=== PATIENT | female | born 1940 | race Caucasian/White ===

== ENCOUNTER 2016-02-21 13:02 | Outpatient (CLI) | payer MEDICARE, OTHER | END 2016-02-21 13:03 | disposition home or self-care (01) | DX: M85.859 Other specified disorders of bone density and structure, unspecified thigh (principal); Z78.0 Asymptomatic menopausal state ==

== ENCOUNTER 2016-03-03 12:13 | Outpatient (CLI) | payer MEDICARE, OTHER ==
--- NOTE | 2016-03-03 13:07 | XRAY Report ---
THREE-VIEW LEFT SHOULDER: 03/03/2016 CLINICAL INDICATION: Pain. FINDINGS: AP, oblique, scapular Y views of the left shoulder demonstrate no evidence of acute fractu re or dislocation. Degenerative changes are seen in the acromioclavicular joint. No radiopaque fore ign body is seen in the soft tissues. IMPRESSION: DEGENERATIVE CHANGES IN THE AC JOINT. NO EVIDENCE OF FRACTURE OR DISLOCATION. JOB #: [id number] EXT JOB #:[id number]
== END 2016-03-03 12:14 | disposition home or self-care (01) ==
LOC: DI 12:13
PROVIDERS: ATTEND Family Medicine
DX: M19.012 Primary osteoarthritis, left shoulder (principal)

== ENCOUNTER 2017-01-09 13:32 | Outpatient (CLI) | payer MEDICARE, OTHER | END 2017-01-09 13:33 | disposition home or self-care (01) | LOC: DI 13:32 | PROVIDERS: ATTEND Family Medicine | DX: R53.81 Other malaise (principal); I51.7 Cardiomegaly | CPT/HCPCS: 93306 ==

== ENCOUNTER 2017-01-20 10:56 | Outpatient (CLI) | payer MEDICARE, OTHER ==
--- NOTE | 2017-01-26 12:03 | Mammography Report ---
EXAM: Digital screening mammogram 01/20/2017. COMPARISON: 01/2016, 01/2015, 01/2014, 12/2012, 06/2011, 05/2010, 05/2009. TECHNIQUE: Routine CC and MLO projections were obtained of the breasts. FINDINGS: The breasts demonstrate scattered fibroglandular densities bilaterally. Coarse and punctate, typically benign calcifications are present. No suspicious masses, clustered microcalcifications, or regions of architectural distortion are identified. IMPRESSION: Benign findings. RECOMMENDATIONS: Routine annual screening unless otherwise clinically indicated. BIRADS category 2 - Benign findings. STANDARD QUALIFYING STATEMENTS 1. This examination was reviewed with the aid of Computed Aided Detection (CAD). 2. A negative x-ray report should not delay biopsy if a dominant or clinically suspicious mass is present. More than 5% of cancers are not identified by x-ray. 3. Dense breasts may obscure an underlying neoplasm. TD: 01/21/2017 14:56 SHERRILL
== END 2017-01-20 10:57 | disposition home or self-care (01) ==
LOC: DI 10:56
PROVIDERS: ATTEND Family Medicine
DX: Z12.31 Encounter for screening mammogram for malignant neoplasm of breast (principal)
CPT/HCPCS: 77067

== ENCOUNTER 2017-12-28 08:19 | Emergency (ER) | payer MEDICARE, OTHER ==
--- NOTE | 2017-12-28 09:02 | ED Physician Documentation ---
PD HPI HEENT - Stated complaint Stated Complaint: PANIC ATTACK - Chief complaint Chief Complaint: Heent - History obtained from History obtained from: Patient - History of Present Illness Timing - onset: How many weeks ago (She has had nasal congestion with sinus pressure and a throat irritation with cough for several weeks to a month or so. She has been on Mucinex without any improvement. She had been using some [id number] cough medicine as well. She states she has had some trouble sleeping with anxiety at nights and was prescribed Xanax for that. She has had can do consistent cough and throat irritation and is here for another evaluation.) Timing - duration: Weeks Timing - details: Gradual onset, Still present, Waxing and waning Location: Sinuses, Throat Worsens: Swalllowing Associated symptoms: Congestion, Cough (more throat irritation and denies it feeling from deep in chest). No: Fever Similar symptoms before: Has not had sx before Recently seen: Clinic (Dr. Greene and Rx Mucinex.) Review of Systems Constitutional: denies: Fever, Chills Nose: reports: Congestion, Sinus pressure / pain. denies: Rhinorrhea / runny nose Throat: reports: Sore throat Cardiac: denies: Chest pain / pressure Respiratory: reports: Cough. denies: Dyspnea, Wheezing GI: denies: Abdominal Pain, Nausea, Vomiting, Diarrhea Skin: denies: Rash, Lesions Neurologic: denies: Altered mental status, Headache Psychiatric: reports: Anxiety, Insomnia PD PAST MEDICAL HISTORY - Past Medical History Cardiovascular: Hypertension, Murmur Respiratory: None Endocrine/Autoimmune: None GI: None : Kidney stones HEENT: Chronic sinusitis Psych: None Musculoskeletal: Osteoporosis Derm: None - Past Surgical History Past Surgical History: Yes General: Appendectomy HEENT: Cataracts - Present Medications Home Medications: Ambulatory Orders Medication Instructions Recorded Confirmed Aspirin [Aspir 81] 81 mg PO DAILY 10/05/12 10/05/12 Calcium [Calcio [place]] 500 mg PO BID 10/05/12 10/05/12 Flaxseed Oil [Flax Seed Oil] 1,000 mg PO DAILY 10/05/12 10/05/12 Hydrochlorothiazide 25 mg PO DAILY 10/05/12 10/05/12 Docusate Calcium 240 mg PO DAILY #30 capsule 08/26/15 Alprazolam [Xanax] 0.25 mg PO 12/28/17 Benzonatate [Tessalon Perle] 100 - 200 mg PO TID PRN #30 capsule 12/28/17 Cetirizine [ZyrTEC] 10 mg PO DAILY #15 tablet 12/28/17 Dexamethasone [Decadron] 4 mg PO DAILY #5 tablet 12/28/17 Ipratropium [place] [Atrovent Hfa] 12.9 gm IH 12/28/17 Levocetirizine Dihydrochloride 5 mg PO 12/28/17 [Xyzal] Montelukast [Singulair] 10 mg PO DAILY 12/28/17 12/28/17 - Allergies Allergies/Adverse Reactions: Allergies Allergy/AdvReac Type Severity Reaction Status Date / Time propoxyphene napsylate * Allergy Intermediate Hallucinati Verified 12/28/17 08:30 [From Ofe] ons - Social History Does the pt smoke?: No Smoking Status: Never smoker Does the pt drink ETOH?: No Does the pt have substance abuse?: No - POLST Patient has POLST: No PD ED PE NORMAL - Vitals Vital signs reviewed: Yes - General General: Alert and oriented X 3, No acute distress, Well developed/nourished - HEENT HEENT: Pharynx benign - Neck Neck: Supple, no meningeal sign, No adenopathy - Cardiac Cardiac: RRR, No murmur - Respiratory Respiratory: Clear bilaterally - Abdomen Abdomen: Soft, Non tender - Derm Derm: Normal color, Warm and dry - Extremities Extremities: No tenderness to palpate, Normal ROM s pain - Neuro Neuro: Alert and oriented X 3, sound engineer audio control 2-12 intact, No motor deficit, No sensory deficit, Normal speech Eye Opening: Spontaneous Motor: Obeys Commands Verbal: Oriented GCS Score: 15 - Psych Psych: Normal mood Results - Vitals Vitals: Vital Signs - 24 hr 12/28/17 12/28/17 08:27 10:03 Temperature 36.9 C Heart Rate 72 65 Respiratory 18 14 Rate Blood Pressure 139/107 H 161/81 H O2 Saturation 98 96 Oxygen O2 Source Room air - Labs Labs: Laboratory Tests 12/28/17 12/28/17 09:53 09:53 Sodium 130 L Potassium 3.4 L Chloride 93 L Carbon Dioxide 30 Anion Gap 7.0 BUN 6 Creatinine 0.5 Estimated GFR (MDRD) 120 Glucose 118 H Calcium 8.9 Phosphorus 3.8 Magnesium 2.1 Total Bilirubin 0.9 AST 32 ALT 25 Alkaline Phosphatase 58 Total Protein 7.5 Albumin 4.4 Globulin 3.1 Albumin/Globulin Ratio 1.4 Lipase 24 TSH 1.05 PD MEDICAL DECISION MAKING - ED course Complexity details: considered differential (Having persistent sore throat and a bit of a tickle cough as well as some pressure in the face sounds like sinus inflammation and can consider infection.), d/w patient Departure - Departure Disposition: 01 Home, Self Care Clinical Impression: Throat irritation Sinusitis Qualifiers: Sinusitis location: unspecified location Chronicity: unspecified Qualified Code(s): J32.9 - Chronic sinusitis, unspecified Condition: Stable Record reviewed to determine appropriate education?: Yes Follow-Up: Luis Triplett MD [Primary Care Provider] - Prescriptions: Benzonatate [Tessalon Perle] 100 - 200 mg PO TID PRN #30 capsule PRN Reason: Cough Cetirizine [ZyrTEC] 10 mg PO DAILY #15 tablet Dexamethasone [Decadron] 4 mg PO DAILY #5 tablet Comments: Drink lots of fluids. Use Decadron for swelling of the sinuses and throat. Tessalon if needed for the throat irritation. Cetirizine antihistamine daily for the next week or so. Recheck if not improved over the next few days. Discharge Date/Time: 12/28/17 11:27
[2017-12-28] MEDS ORDERED: DEXAMETHASONE 10 MG/ML VIAL PO STA (09:28)
[2017-12-28] MEDS ORDERED: BENZONATATE 100 MG CAPSULE PO STA (09:28)
[2017-12-28] MEDS ORDERED: LIDOCAINE VISCOUS 2% 15 ML UDC MM STA (09:29)
[2017-12-28 10:04] VITALS: BP 161/81
[2017-12-28 10:16] LABS: ALBUMIN 4.4 g/dL (3.2-5.5); ALBUMIN/GLOBULIN RATIO 1.4 (1.0-2.2); BILIRUBIN,TOTAL 0.9 mg/dL (0.2-1.0); CALCIUM 8.9 mg/dL (8.5-10.3); CREATININE 0.5 mg/dL (0.4-1.0); MAGNESIUM 2.1 mg/dL (1.7-2.8); PHOSPHORUS 3.8 mg/dL (2.5-4.6); TOTAL PROTEIN 7.5 g/dL (6.7-8.2)
== END 2017-12-28 11:27 | disposition home or self-care (01) ==
LOC: ED 08:19
DX: J02.9 Acute pharyngitis, unspecified (principal); J32.9 Chronic sinusitis, unspecified; I10 Essential (primary) hypertension; R01.1 Cardiac murmur, unspecified
CPT/HCPCS: 36415; 80053; 83690; 83735; 84100; 84443; 99283; A9270

== ENCOUNTER 2018-03-01 07:46 | Outpatient (CLI) | payer MEDICARE, OTHER ==
--- NOTE | 2018-03-02 09:15 | Mammography Report ---
Reason: ANNUAL MAMMOGRAM Procedure Date: 03/01/2018 Accession Number: [id number] / [id number] Procedure: CLIVE - Screening Mammo w/Anthony CPT Code: FULL RESULT: EXAM: Screening Mammo w/Anthony DATE: 03/01/2018 8:50 AM CLINICAL HISTORY: Screening encounter. No reported risk factors. TECHNIQUE: Bilateral CC and MLO views were obtained. COMPARISON: 01/20/2017 through 01/12/2014. FINDINGS: The breasts demonstrate diffuse fatty replacement bilaterally. There are coarse typically benign calcifications. No suspicious masses, clustered microcalcifications, or regions of architectural distortion are identified. IMPRESSION: Benign findings RECOMMENDATION: Routine annual screening unless otherwise clinically indicated. BIRADS CATEGORY 2: Benign findings STANDARD QUALIFYING STATEMENTS: 1. This examination was not reviewed with the aid of Computer-Aided Detection (CAD). 2. A negative or benign imaging report should not preclude biopsy if clinically suspicious findings are present. 3. Dense breasts may obscure an underlying neoplasm. 4. This examination was reviewed with the aid of 3D breast imaging (tomosynthesis).
== END 2018-03-01 07:47 | disposition home or self-care (01) ==
LOC: DI 07:46
PROVIDERS: ATTEND Family Medicine
DX: Z12.31 Encounter for screening mammogram for malignant neoplasm of breast (principal)
CPT/HCPCS: 77063; 77067

== ENCOUNTER 2018-07-02 11:22 | Outpatient (CLI) | payer MEDICARE, OTHER ==
--- NOTE | 2018-07-02 12:12 | XRAY Report ---
Reason: ACUTE BRONCHITIS, UNSPECIFIED Procedure Date: 07/02/2018 Accession Number: [id number] / [id number] Procedure: XR - Chest 2 View X-Ray CPT Code: 55112 FULL RESULT: EXAM: CHEST RADIOGRAPHY EXAM DATE: 07/02/2018 11:40 AM. CLINICAL HISTORY: Acute bronchitis, unspecified. COMPARISON: XR CHEST PA AND LAT 07/06/2007 3:19 PM. TECHNIQUE: 2 views. FINDINGS: Lungs/Pleura: No focal opacities evident. No pleural effusion. No pneumothorax. Lungs appear hyperinflated. Mediastinum: Heart and mediastinal contours are likely stable accounting for differences in technique. Other: None. IMPRESSION: Hyperinflated lungs without acute airspace disease detected. RADIA
== END 2018-07-02 11:23 | disposition home or self-care (01) ==
LOC: DI 11:22
PROVIDERS: ATTEND Internal Medicine
DX: J20.9 Acute bronchitis, unspecified (principal)
CPT/HCPCS: 71046

== ENCOUNTER 2018-07-12 09:22 | Outpatient (CLI) | payer MEDICARE, OTHER ==
--- NOTE | 2018-07-12 11:50 | XRAY Report ---
Reason: HOARSENESS,OTHER DYSPHAGIA,EDEMA OF PHARYNX Procedure Date: 07/12/2018 Accession Number: [id number] / [id number] Procedure: FL - Modified Barium Swallow W/SP CPT Code: FULL RESULT: EXAM: MODIFIED BARIUM SWALLOW EXAM DATE: 07/12/2018 09:58 AM. CLINICAL HISTORY: Hoarseness, other dysphagia, edema of pharynx. COMPARISON: None. TECHNIQUE: Under the direction of speech pathology, patient swallowed various consistencies of barium under lateral fluoroscopic observation of the neck. Fluoroscopy Time: 45 seconds. Number of Images: 50. FINDINGS: Swallowing Mechanism: Normal oral phase and swallowing reflex. Airway Protection: Normal epiglottic motion. No episodes of tracheal penetration or aspiration with all consistencies of barium. Pharynx: Normal. No significant vallecular or piriform sinus contrast pooling. Other: None. IMPRESSION: Normal modified barium swallow. No aspiration identified. RADIA
== END 2018-07-12 09:23 | disposition home or self-care (01) ==
LOC: DI 09:22
PROVIDERS: ATTEND Otolaryngology
DX: R13.19 Other dysphagia (principal); R49.0 Dysphonia; J39.2 Other diseases of pharynx
CPT/HCPCS: 74230

== ENCOUNTER 2018-08-22 10:05 | Emergency (ER) | payer MEDICARE, OTHER ==
[2018-08-22 10:52] LABS: BASOPHILS % (AUTO) 0.5 %; EOSINOPHILS % (AUTO) 0.4 %; HGB - HEMOGLOBIN 10.3 g/dL (12.0-16.0); LYMPHOCYTES # (AUTO) 0.8 10^3/uL (1.5-3.5); LYMPHOCYTES % (AUTO) 9.8 %; MEAN CORPUSCULAR HEMOGLOBIN 28.9 pg (27.0-31.0); MEAN CORPUSCULAR HGB CONC 32.1 g/dL (32.0-36.0); MEAN CORPUSCULAR VOLUME 89.9 fL (81.0-99.0); MEAN PLATELET VOLUME 8.3 fL (7.9-10.8); MONOCYTES # (AUTO) 0.6 10^3/uL (0.0-1.0); MONOCYTES % (AUTO) 7.4 %; NEUTROPHILS # (AUTO) 6.9 10^3/uL (1.5-6.6); NEUTROPHILS % (AUTO) 81.5 %; PLT - PLATELET COUNT 355 10^3/uL (130-450); RED BLOOD COUNT 3.57 10^6/uL (4.20-5.40); RED CELL DISTRIBUTION WIDTH 14.4 % (12.0-15.0); WHITE BLOOD COUNT 8.4 x10^3/uL (4.8-10.8)
[2018-08-22 11:12] LABS: ALBUMIN 3.3 g/dL (3.2-5.5); ALBUMIN/GLOBULIN RATIO 1.1 (1.0-2.2); BILIRUBIN,TOTAL 0.7 mg/dL (0.2-1.0); CALCIUM 8.6 mg/dL (8.5-10.3); CREATININE 0.5 mg/dL (0.4-1.0); TOTAL PROTEIN 6.2 g/dL (6.7-8.2)
--- NOTE | 2018-08-22 12:17 | ED Physician Documentation ---
PD HPI ABD PAIN - Stated complaint Stated Complaint: CONSTIPATED - Chief complaint Chief Complaint: Abd Pain - History obtained from History obtained from: Patient - History of Present Illness Timing - onset: Other (2 weeks constipation. Has H/O chronic recurrent constipation despite taking stool softeners.) Timing - details: Still present (She is been trying rectal massage externally without relief. She has not trialed in any oral laxatives per se. She is living alone and seems very lonely. Her about a year ago and she has lost weight since then.) Review of Systems Constitutional: denies: Fever, Chills GI: denies: Abdominal Pain, Nausea, Vomiting, Diarrhea, Hematemesis, Bloody / black stool : denies: Dysuria, Frequency PD PAST MEDICAL HISTORY - Past Medical History Cardiovascular: Hypertension, Murmur Respiratory: None Neuro: None Endocrine/Autoimmune: None GI: Chronic constipation, Other : Kidney stones HEENT: Chronic sinusitis Psych: None Musculoskeletal: Osteoporosis Derm: None Other Past Medical History: difficulty swallowing. - Past Surgical History Past Surgical History: Yes General: Appendectomy HEENT: Cataracts - Present Medications Home Medications: Ambulatory Orders Medication Instructions Recorded Confirmed Aspirin [Aspir 81] 81 mg PO DAILY 10/05/12 10/05/12 Calcium [Calcio [place]] 500 mg PO BID 10/05/12 10/05/12 Flaxseed Oil [Flax Seed Oil] 1,000 mg PO DAILY 10/05/12 10/05/12 Hydrochlorothiazide 25 mg PO DAILY 10/05/12 10/05/12 Docusate Calcium 240 mg PO DAILY #30 capsule 08/26/15 Alprazolam [Xanax] 0.25 mg PO 12/28/17 Benzonatate [Tessalon Perle] 100 - 200 mg PO TID PRN #30 capsule 12/28/17 Cetirizine [ZyrTEC] 10 mg PO DAILY #15 tablet 12/28/17 Ipratropium [place] [Atrovent Hfa] 12.9 gm IH 12/28/17 Levocetirizine Dihydrochloride 5 mg PO 12/28/17 [Xyzal] Montelukast [Singulair] 10 mg PO DAILY 12/28/17 12/28/17 dexAMETHasone [Decadron] 4 mg PO DAILY #5 tablet 12/28/17 Lactulose [Generlac] 10 gm PO QID PRN #150 ml 08/22/18 - Allergies Allergies/Adverse Reactions: Allergies Allergy/AdvReac Type Severity Reaction Status Date / Time propoxyphene napsylate * Allergy Intermediate Hallucinati Verified 12/28/17 08:30 [From Ofe] ons - Social History Does the pt smoke?: No Smoking Status: Never smoker Does the pt drink ETOH?: No Does the pt have substance abuse?: No - Immunizations Immunizations are current?: Yes - POLST Patient has POLST: No PD ED PE NORMAL - Vitals Vital signs reviewed: Yes - General General: Alert and oriented X 3, No acute distress - Cardiac Cardiac: RRR, No murmur - Respiratory Respiratory: No respiratory distress, Clear bilaterally - Abdomen Abdomen: Normal bowel sounds, Soft, Non tender - Rectal Rectal: Other (Minimal's brown stool in the vault, external hemorrhoids. Guaiac negative. No reachable fecal impaction.) - Back Back: No CVA TTP, No spinal TTP - Derm Derm: Normal color, Warm and dry - Extremities Extremities: Other (trace pitting pedal edema) - Neuro Neuro: Alert and oriented X 3, Normal speech Results - Vitals Vitals: Vital Signs - 24 hr 08/22/18 08/22/18 10:13 10:56 Temperature 36.1 C L Heart Rate 58 L 62 Respiratory 18 10 L Rate Blood Pressure 108/71 128/70 O2 Saturation 98 99 Oxygen O2 Source Room air - Labs Labs: Laboratory Tests 08/22/18 08/22/18 08/22/18 10:47 10:47 10:47 WBC 8.4 RBC 3.57 L Hgb 10.3 L Hct 32.1 L MCV 89.9 MCH 28.9 MCHC 32.1 RDW 14.4 Plt Count 355 MPV 8.3 Neut # (Auto) 6.9 H Lymph # (Auto) 0.8 L [place] # (Auto) 0.6 Eos # (Auto) 0.0 Baso # (Auto) 0.0 Absolute Nucleated RBC 0.00 Nucleated RBC % 0.0 Sodium 124 L Potassium 2.9 L Chloride 87 L Carbon Dioxide 26 Anion Gap 11.0 BUN 9 Creatinine 0.5 Estimated GFR (MDRD) 120 Glucose 114 H Calcium 8.6 Total Bilirubin 0.7 AST 21 ALT 14 Alkaline Phosphatase 54 Total Protein 6.2 L Albumin 3.3 Globulin 2.9 Albumin/Globulin Ratio 1.1 Lipase 25 TSH 2.71 Thyroxine (T4) 8.15 Free T3 pg/mL 08/22/18 10:47 WBC RBC Hgb Hct MCV MCH MCHC RDW Plt Count MPV Neut # (Auto) Lymph # (Auto) [place] # (Auto) Eos # (Auto) Baso # (Auto) Absolute Nucleated RBC Nucleated RBC % Sodium Potassium Chloride Carbon Dioxide Anion Gap BUN Creatinine Estimated GFR (MDRD) Glucose Calcium Total Bilirubin AST ALT Alkaline Phosphatase Total Protein Albumin Globulin Albumin/Globulin Ratio Lipase TSH Thyroxine (T4) Free T3 pg/mL 2.69 PD MEDICAL DECISION MAKING - ED course ED course: 78-year-old woman with constipation, no fecal impaction within fingers reach. Noted that since the last CBC which was 5 years ago she has become modestly ane sierra, normocytic. She is also fairly hyponatremic and hypokalemic. Advised to stop hydrochlorothiazide. After the administration of magnesium citrate, Dulcolax She had a excellent and large bowel movement. Departure - Departure Disposition: 01 Home, Self Care Clinical Impression: Constipation Qualifiers: Constipation type: unspecified constipation type Qualified Code(s): K59.00 - Constipation, unspecified Condition: Good Record reviewed to determine appropriate education?: Yes Health Concerns: constipation Plan of Treatment: laxatives Care Goals: pooping Assessment: as above Instructions: ED Constipation Prescriptions: Lactulose [Generlac] 10 gm PO QID PRN #150 ml PRN Reason: Constipation Comments: Call your doctor to arrange a follow-up appointment, make the next available appointment. In the interim, return anytime if worse or if new symptoms develop. Pending that appointment, stop your hydrochlorothiazide for low sodium (124) and potassium (2.9) levels.
[2018-08-22] MEDS ORDERED: POTASSIUM CHLORIDE 20 MEQ TABLET PO STA (12:23)
[2018-08-22] MEDS ORDERED: BISACODYL 5 MG TABLET PO STA (12:34)
[2018-08-22] MEDS ORDERED: MAGNESIUM CITRATE 296 ML BOTTLE PO STA (12:34)
[2018-08-22 13:18] LABS: T4 (THYROXINE) 8.15 ug/dL (6.09-12.23)
[2018-08-22 13:22] LABS: THYROID STIMULATING HORMONE 2.71 uIU/mL (0.34-5.60)
[2018-08-22 13:59] VITALS: BP 112/64
== END 2018-08-22 13:59 | disposition home or self-care (01) ==
LOC: ED 10:05
DX: K59.00 Constipation, unspecified (principal); K64.4 Residual hemorrhoidal skin tags; D64.9 Anemia, unspecified; E87.1 Hypo-osmolality and hyponatremia; E87.6 Hypokalemia; I10 Essential (primary) hypertension; Z79.82 Long term (current) use of aspirin
CPT/HCPCS: 36415; 83690; 84436; 84481; 99283; 99284; A9270; 80053; 81001; 81003; 84443; 85025; 87086

== ENCOUNTER 2018-10-06 08:19 | Day surgery (SDC) | payer MEDICARE, OTHER ==
[2018-10-06] MEDS ORDERED: LACTATED RINGERS 1,000 ML IV ONE ×2 (08:48→11:17)
[2018-10-06] MEDS ORDERED: fentaNYL 250 MCG/5 ML VIAL IVP ONE (11:02)
[2018-10-06] MEDS ORDERED: MIDAZOLAM 2 MG/2 ML VIAL IVP ONE (11:02)
[2018-10-06 11:52] VITALS: BP 106/70
== END 2018-10-06 08:20 | disposition home or self-care (01) ==
LOC: SDS 08:19
PROVIDERS: ATTEND Surgery
PROC: 0DBK8ZZ Excision of Ascending Colon, Via Natural or Artificial Opening Endoscopic (ICD-10-PCS; 2018-10-06)
PROC: 0DBH8ZX Excision of Cecum, Via Natural or Artificial Opening Endoscopic, Diagnostic (ICD-10-PCS; principal; 2018-10-06 10:00)
DX: D64.9 Anemia, unspecified (principal); D12.0 Benign neoplasm of cecum; D12.2 Benign neoplasm of ascending colon; K57.30 Diverticulosis of large intestine without perforation or abscess without bleeding
CPT/HCPCS: 45384; 45385; J3010; J7120

== ENCOUNTER 2018-11-24 09:13 | Emergency (ER) | payer MEDICARE, OTHER ==
--- NOTE | 2018-11-24 09:37 | ED Physician Documentation ---
History of Present Illness - Stated complaint Stated Complaint: WEAKNESS/BLOOD TEST RESULTS - Chief complaint Chief Complaint: General - Additonal information Additional information: This is a 78 year old with a history of an anemia and low platelets, who presents to the emergency department after being called due to low hemoglobin. Patient was called by her physician's office this morning and told to come to the emergency department because her hemoglobin is 6.6. She is about to establish with Dr. Palacio of hematology oncology and [facility], and she was told to go to [facility]'s emergency department, however she came to this ED because it was closer. I spoke to Dr. Rothman's office, and was informed that on her most recent labs on 10/27 she has had a hemoglobin of 7.5, platelets of 16.1, and white blood cell count of 3.21. Then labs from yesterday revealed a hemoglobin of 6.6. The cause of her anemia has not been clear, reportedly this is been an ongoing chronic issue. Patient states that she does have some easy bleeding and bruising, denies any weakness numbness chest pain. She states She has had multiple colonoscopies which have not shown any source of bleeding, she has normal-appearing stools no black or tarry stool, no blood in her stool. She denies any obvious source of bleeding, she states that it is thought she has a production Issue/problem with her bone marrow. She currently feels fine, and den ies chest pain, lightheadedness, syncope, shortness of breath. Review of Systems Constitutional: denies: Fever Cardiac: denies: Chest pain / pressure Respiratory: denies: Dyspnea GI: denies: Abdominal Pain : denies: Dysuria Neurologic: denies: Generalized weakness Endocrine: reports: Easy bruising / bleeding PD PAST MEDICAL HISTORY - Past Medical History Cardiovascular: Hypertension Respiratory: None Neuro: None Endocrine/Autoimmune: None GI: Chronic constipation : None HEENT: None Psych: Anxiety Musculoskeletal: Osteoarthritis Derm: None - Past Surgical History Past Surgical History: Yes General: Other HEENT: Cataracts - Present Medications Home Medications: Ambulatory Orders Medication Instructions Recorded Confirmed Aspirin [Aspir 81] 81 mg PO DAILY 10/05/12 10/05/18 Calcium [Calcio [place]] 500 mg PO BID 10/05/12 10/05/18 Flaxseed Oil [Flax Seed Oil] 1,000 mg PO DAILY 10/05/12 10/05/18 Hydrochlorothiazide 25 mg PO DAILY 10/05/12 10/05/18 Docusate Calcium 240 mg PO DAILY #30 capsule 08/26/15 10/05/18 Alprazolam [Xanax] 0.25 mg PO DAILY PRN 12/28/17 10/05/18 Cetirizine [ZyrTEC] 10 mg PO DAILY #15 tablet 12/28/17 10/05/18 Lactulose [Generlac] 10 gm PO QID PRN #150 ml 08/22/18 10/05/18 - Allergies Allergies/Adverse Reactions: Allergies Allergy/AdvReac Type Severity Reaction Status Date / Time No Known Drug Allergies Allergy Verified 11/24/18 09:30 - Social History Does the pt smoke?: No Smoking Status: Never smoker Does the pt drink ETOH?: No Does the pt have substance abuse?: No - Immunizations Immunizations are current?: Yes - POLST Patient has POLST: No PD ED PE NORMAL - Vitals Vital signs reviewed: Yes - General General: Alert and oriented X 3, No acute distress - HEENT HEENT: PERRL - Neck Neck: Supple, no meningeal sign - Cardiac Cardiac: RRR - Respiratory Respiratory: No respiratory distress, Clear bilaterally - Abdomen Abdomen: Normal bowel sounds, Soft, Non tender - Derm Derm: Warm and dry, Other (scatteres bruises of different stages on forearms.) - Extremities Extremities: No deformity - Neuro Neuro: Alert and oriented X 3, No motor deficit, No sensory deficit, Normal speech - Psych Psych: Normal mood, Normal affect Results - Vitals Vitals: Vital Signs - 24 hr 11/24/18 11/24/18 11/24/18 11:50 12:44 13:00 Temperature Heart Rate 86 68 69 Respiratory 16 20 15 Rate Blood Pressure 108/73 123/73 123/73 O2 Saturation 99 98 98 11/24/18 11/24/18 11/24/18 13:35 13:40 13:50 Temperature 36.9 C 37.0 C Heart Rate 67 67 66 Respiratory 16 18 19 Rate Blood Pressure 129/80 129/80 122/73 O2 Saturation 98 11/24/18 11/24/18 11/24/18 13:58 14:13 14:30 Temperature 37.0 C 36.9 C Heart Rate 63 76 67 Respiratory 21 14 20 Rate Blood Pressure 127/73 128/79 133/82 H O2 Saturation 99 99 11/24/18 11/24/18 15:01 15:41 Temperature 98.4 C H Heart Rate 66 69 Respiratory 21 16 Rate Blood Pressure 133/82 H 130/79 O2 Saturation 99 99 Oxygen O2 Source Room air - Labs Labs: Laboratory Tests 11/24/18 11/24/18 11/24/18 09:45 09:45 09:45 WBC 9.8 RBC 3.34 L Hgb 6.8 L* Hct 24.3 L MCV 72.8 L MCH 20.4 L MCHC 28.0 L RDW 16.9 H Plt Count 386 MPV 8.6 Neut # (Auto) 7.5 H Lymph # (Auto) 1.2 L [place] # (Auto) 0.9 Eos # (Auto) 0.2 Baso # (Auto) 0.1 Absolute Nucleated RBC 0.00 Nucleated RBC % 0.0 Manual Slide Review Indicated Platelet Estimate NORMAL (130-450,000) Platelet Morphology NORMAL APPEARANCE RBC Morph Micro Appear 1+ OVALOCYTES PT 12.1 INR 1.1 Sodium 136 Potassium 4.1 Chloride 99 L Carbon Dioxide 28 Anion Gap 9.0 BUN 28 H Creatinine 0.4 Estimated GFR (MDRD) 155 Glucose 99 Calcium 8.6 Total Bilirubin 0.4 AST 23 ALT 15 Alkaline Phosphatase 84 B-Natriuretic Peptide Total Protein 6.6 L Albumin 3.1 L Globulin 3.5 Albumin/Globulin Ratio 0.9 L Lipase 35 Blood Type Blood Type Recheck Antibody Screen Crossmatch IS Only 11/24/18 11/24/18 11/24/18 09:45 09:45 11:36 WBC RBC Hgb Hct MCV MCH MCHC RDW Plt Count MPV Neut # (Auto) Lymph # (Auto) [place] # (Auto) Eos # (Auto) Baso # (Auto) Absolute Nucleated RBC Nucleated RBC % Manual Slide Review Platelet Estimate Platelet Morphology RBC Morph Micro Appear PT INR Sodium Potassium Chloride Carbon Dioxide Anion Gap BUN Creatinine Estimated GFR (MDRD) Glucose Calcium Total Bilirubin AST ALT Alkaline Phosphatase B-Natriuretic Peptide 832 H Total Protein Albumin Globulin Albumin/Globulin Ratio Lipase Blood Type O POSITIVE Blood Type Recheck O POSITIVE Antibody Screen NEGATIVE Crossmatch IS Only See Detail PD MEDICAL DECISION MAKING - ED course Complexity details: considered differential (Anemia, pancytopenia, dyscrasia, cancer, GI bleed) ED course: Patient presents with asymptomatic anemia with hemoglobin <7, from my discussion with her PCP office she is has been chronically low, most recently in the 7s before this. It seems she has had a slow drop in her hemoglobin over time. She denies any GI bleeding and workup for this including colonoscopies is reportedly negative. Repeat labs today show hemoglobin 6.8, normal platelets and WBC. I spoke with Cost Accounting Clerk Dr. Palacio at 11:15, and reviewed the patient's case with him. He states that he will be okay to transfuse her today, he did not recommend any specific labs to draw prior to transfusion and he will plan to see her with outpatient follow-up in clinic. Transfusion was given to patient without issue, afterwards she continued to feel well and was eager to go home. I did note she has trace bilateral LE edema, her BNP is slightly elevated today but she has no other clinical signs of heart failure. Her albumin is somewhat low and this may be contributing as well. She was instructed to follow up with her PCP on this, and to have repeat blood counts drawn within the week. I reviewed strict return precautions and patient was discharged home. Departure - Departure Disposition: Home, Self Care Clinical Impression: Anemia Qualifiers: Anemia type: unspecified type Qualified Code(s): D64.9 - Anemia, unspecified Condition: Good Follow-Up: Luis Triplett MD [Primary Care Provider] - Within 1 week MARK PALACIO MD [Physician No Access] - Comments: You were seen today for low blood counts. Your hemoglobin is 6.8 so we gave you a unit of blood. Please follow-up with your oncologist/lidar technician Dr. Palacio as scheduled. Please also follow-up with your primary care provider in the next week for a recheck of your blood counts. Return to the emergency department if you have any weakness, shortness of breath, passing out, dark black or bloody stool, or lightheadedness or other concerning symptoms. Discharge Date/Time: 11/24/18 15:44
[2018-11-24 10:03] LABS: BASOPHILS # (AUTO) 0.1 10^3/uL (0.0-0.1); BASOPHILS % (AUTO) 0.6 %; EOSINOPHILS # (AUTO) 0.2 10^3/uL (0.0-0.7); EOSINOPHILS % (AUTO) 1.5 %; LYMPHOCYTES # (AUTO) 1.2 10^3/uL (1.5-3.5); LYMPHOCYTES % (AUTO) 12.1 %; MEAN CORPUSCULAR HEMOGLOBIN 20.4 pg (27.0-31.0); MEAN CORPUSCULAR VOLUME 72.8 fL (81.0-99.0); MEAN PLATELET VOLUME 8.6 fL (7.9-10.8); MONOCYTES # (AUTO) 0.9 10^3/uL (0.0-1.0); MONOCYTES % (AUTO) 9.1 %; NEUTROPHILS # (AUTO) 7.5 10^3/uL (1.5-6.6); NEUTROPHILS % (AUTO) 76.3 %; PLT - PLATELET COUNT 386 10^3/uL (130-450); RED BLOOD COUNT 3.34 10^6/uL (4.20-5.40); RED CELL DISTRIBUTION WIDTH 16.9 % (12.0-15.0); WHITE BLOOD COUNT 9.8 x10^3/uL (4.8-10.8)
[2018-11-24 10:06] LABS: INR 1.1 (0.8-1.2); PT - PROTHROMBIN TIME 12.1 secs (9.9-12.6)
[2018-11-24 10:08] LABS: HGB - HEMOGLOBIN 6.8 g/dL (12.0-16.0)
[2018-11-24 10:11] LABS: ALBUMIN 3.1 g/dL (3.2-5.5); ALBUMIN/GLOBULIN RATIO 0.9 (1.0-2.2); BILIRUBIN,TOTAL 0.4 mg/dL (0.2-1.0); CALCIUM 8.6 mg/dL (8.5-10.3); CREATININE 0.4 mg/dL (0.4-1.0); TOTAL PROTEIN 6.6 g/dL (6.7-8.2)
[2018-11-24 10:26] LABS: PLATELET ESTIMATE, MANUAL NORMAL (130-450,000) (NORMAL); PLATELET MORPHOLOGY NORMAL APPEARANCE (NORMAL)
[2018-11-24 15:42] VITALS: BP 130/79
== END 2018-11-24 15:44 | disposition home or self-care (01) ==
LOC: ED 09:13
DX: D64.9 Anemia, unspecified (principal); I10 Essential (primary) hypertension; R60.0 Localized edema; R79.89 Other specified abnormal findings of blood chemistry; Z79.82 Long term (current) use of aspirin
CPT/HCPCS: 36415; 36430; 80053; 83690; 83880; 85025; 85610; 86850; 86900; 86901; 86920; 99283; 99285; P9016

== ENCOUNTER 2018-12-31 11:59 | Emergency (ER) | payer MEDICARE, OTHER ==
[2018-12-31 12:37] LABS: BASOPHILS # (AUTO) 0.1 10^3/uL (0.0-0.1); BASOPHILS % (AUTO) 0.6 %; EOSINOPHILS # (AUTO) 0.1 10^3/uL (0.0-0.7); EOSINOPHILS % (AUTO) 0.9 %; HGB - HEMOGLOBIN 9.8 g/dL (12.0-16.0); LYMPHOCYTES # (AUTO) 0.7 10^3/uL (1.5-3.5); LYMPHOCYTES % (AUTO) 8.7 %; MEAN CORPUSCULAR HEMOGLOBIN 21.3 pg (27.0-31.0); MEAN CORPUSCULAR HGB CONC 28.5 g/dL (32.0-36.0); MEAN CORPUSCULAR VOLUME 74.6 fL (81.0-99.0); MEAN PLATELET VOLUME 8.3 fL (7.9-10.8); MONOCYTES # (AUTO) 0.4 10^3/uL (0.0-1.0); MONOCYTES % (AUTO) 5.4 %; NEUTROPHILS # (AUTO) 6.7 10^3/uL (1.5-6.6); PLT - PLATELET COUNT 391 10^3/uL (130-450); RED BLOOD COUNT 4.61 10^6/uL (4.20-5.40); RED CELL DISTRIBUTION WIDTH 23.9 % (12.0-15.0)
[2018-12-31 12:56] LABS: ALBUMIN 3.3 g/dL (3.2-5.5); ALBUMIN/GLOBULIN RATIO 0.9 (1.0-2.2); BILIRUBIN,TOTAL 0.4 mg/dL (0.2-1.0); CALCIUM 8.7 mg/dL (8.5-10.3); CREATININE 0.6 mg/dL (0.4-1.0); TOTAL PROTEIN 6.9 g/dL (6.7-8.2)
[2018-12-31 13:16] LABS: RBC MORPHOLOGY (MULTIPLE) 3+ ANISOCYTOSIS (NORMAL)
--- NOTE | 2018-12-31 13:32 | ED Physician Documentation ---
History of Present Illness - Stated complaint Stated Complaint: VOMITING/BACK PX - Chief complaint Chief Complaint: Abd Pain - Additonal information Additional information: This is a 78-year-old female with a history of anemia, who presents with epigastric discomfort. Patient has had some epigastric pain for several days, and this is been associated with multiple episodes of vomiting. She is able to drink fluids, but her appetite has been reduced. She has been taking iron for her anemia, Which she states seems to irritate her stomach somewhat. She denies fever or chills. She is having normal bowel movements.No chest pain or shor tness of breath. She does feel some mild sore throat associated with her repeated vomiting Review of Systems Constitutional: denies: Fever Nose: denies: Rhinorrhea / runny nose Throat: denies: Dental pain / toothache Cardiac: denies: Chest pain / pressure Respiratory: denies: Dyspnea GI: reports: Abdominal Pain : denies: Dysuria Skin: denies: Rash Musculoskeletal: denies: Neck pain Neurologic: denies: Generalized weakness PD PAST MEDICAL HISTORY - Past Medical History Cardiovascular: Hypertension Respiratory: None Neuro: None Endocrine/Autoimmune: None GI: Chronic constipation : None HEENT: None Psych: Anxiety Musculoskeletal: Osteoarthritis Derm: None - Past Surgical History Past Surgical History: Yes General: Other HEENT: Cataracts - Present Medications Home Medications: Ambulatory Orders Medication Instructions Recorded Confirmed Aspirin [Aspir 81] 81 mg PO DAILY 10/05/12 10/05/18 Calcium [Calcio Talmage] 500 mg PO BID 10/05/12 10/05/18 Flaxseed Oil [Flax Seed Oil] 1,000 mg PO DAILY 10/05/12 10/05/18 Hydrochlorothiazide 25 mg PO DAILY 10/05/12 10/05/18 Docusate Calcium 240 mg PO DAILY #30 capsule 08/26/15 10/05/18 Alprazolam [Xanax] 0.25 mg PO DAILY PRN 12/28/17 10/05/18 Cetirizine [ZyrTEC] 10 mg PO DAILY #15 tablet 12/28/17 10/05/18 Lactulose [Generlac] 10 gm PO QID PRN #150 ml 08/22/18 10/05/18 Ciprofloxacin HCl [Cipro] 500 mg PO BID #14 tablet 11/22/19 Metronidazole [Flagyl] 500 mg PO Q8HR #21 tablet 12/31/18 Ondansetron Odt [Zofran] 4 mg TL Q6H PRN #5 tablet 12/31/18 - Allergies Allergies/Adverse Reactions: Allergies Allergy/AdvReac Type Severity Reaction Status Date / Time No Known Drug Allergies Allergy Verified 12/31/18 12:06 - Social History Does the pt smoke?: No Smoking Status: Never smoker Does the pt drink ETOH?: No Does the pt have substance abuse?: No - Immunizations Immunizations are current?: Yes - POLST Patient has POLST: No PD ED PE NORMAL - Vitals Vital signs reviewed: Yes - General General: Alert and oriented X 3, No acute distress - HEENT HEENT: PERRL - Neck Neck: Supple, no meningeal sign - Cardiac Cardiac: RRR, No murmur - Respiratory Respiratory: No respiratory distress, Clear bilaterally - Abdomen Abdomen: Other (Mild epigastric tenderness and right upper quadrant to palpation, as well as left upper quadrant tenderness. No guarding. Abdomen is soft and nontender.) - Derm Derm: Warm and dry - Extremities Extremities: No deformity - Neuro Neuro: Alert and oriented X 3 - Psych Psych: Normal mood, Normal affect Results - Vitals Vitals: Vital Signs - 24 hr 12/31/18 12/31/18 12/31/18 14:38 17:23 18:00 Heart Rate 56 L 52 L 53 L Respiratory 18 18 16 Rate Blood Pressure 128/76 123/65 119/68 O2 Saturation 100 100 100 Oxygen O2 Source Room air - Labs Labs: Laboratory Tests 12/31/18 12/31/18 12/31/18 12:27 12:27 15:16 WBC 8.0 RBC 4.61 Hgb 9.8 L Hct 34.4 L MCV 74.6 L MCH 21.3 L MCHC 28.5 L RDW 23.9 H Plt Count 391 MPV 8.3 Neut # (Auto) 6.7 H Lymph # (Auto) 0.7 L [place] # (Auto) 0.4 Eos # (Auto) 0.1 Baso # (Auto) 0.1 Absolute Nucleated RBC 0.00 Nucleated RBC % 0.0 Manual Slide Review Indicated RBC Morph Micro Appear 3+ ANISOCYTOSIS Sodium 139 Potassium 3.3 L Chloride 98 L Carbon Dioxide 30 Anion Gap 11.0 BUN 16 Creatinine 0.6 Estimated GFR (MDRD) 97 Glucose 129 H Lactic Acid Calcium 8.7 Total Bilirubin 0.4 AST 18 ALT 11 Alkaline Phosphatase 75 Troponin I High Sens 3.5 B-Natriuretic Peptide Total Protein 6.9 Albumin 3.3 Globulin 3.6 Albumin/Globulin Ratio 0.9 L Lipase 27 Urine Color Urine Clarity Urine pH Ur Specific [place] Urine Protein Urine Glucose (UA) Urine Ketones Urine Occult Blood Urine Nitrite Urine Bilirubin Urine Urobilinogen Ur Leukocyte Esterase Ur Microscopic Review Urine Culture Comments 12/31/18 12/31/18 12/31/18 15:16 15:16 16:15 WBC RBC Hgb Hct MCV MCH MCHC RDW Plt Count MPV Neut # (Auto) Lymph # (Auto) [place] # (Auto) Eos # (Auto) Baso # (Auto) Absolute Nucleated RBC Nucleated RBC % Manual Slide Review RBC Morph Micro Appear Sodium Potassium Chloride Carbon Dioxide Anion Gap BUN Creatinine Estimated GFR (MDRD) Glucose Lactic Acid 1.1 Calcium Total Bilirubin AST ALT Alkaline Phosphatase Troponin I High Sens B-Natriuretic Peptide 325 H Total Protein Albumin Globulin Albumin/Globulin Ratio Lipase Urine Color YELLOW Urine Clarity CLEAR Urine pH 5.5 Ur Specific [place] <=1.005 Urine Protein NEGATIVE Urine Glucose (UA) NEGATIVE Urine Ketones 15 H Urine Occult Blood NEGATIVE Urine Nitrite NEGATIVE Urine Bilirubin NEGATIVE Urine Urobilinogen 0.2 (NORMAL) Ur Leukocyte Esterase NEGATIVE Ur Microscopic Review NOT INDICATED Urine Culture Comments NOT INDICATED - Rads (name of study) CT abd/pelvis W Radiology: Other (Diffuse mesenteric fat edema and possible diverticulitis/colitis) PD MEDICAL DECISION MAKING - ED course Complexity details: considered differential (Gastroenteritis, pancreatitis, diverticulitis, mesenteric ischemia, gastritis, bowel obstruction, enteritis, ACS) ED course: On exam patient is non-toxic, she has a mildly tender abdomen. IV inserted, labs drawn, she was given zofran for nausea. Labs show no leukocytosis, improving anemia. Abdominal panel unremarkable. Troponin is negative and patient has no chest pain or shortness of breath, ACS highly unlikely. CT abd/pelvis shows diffuse fat edema which could represent peritonitis vs. systemic process. It also shows possible diverticulitis. BNP is somewhat elevated but she has no shortness of breath and clear lungs, no signs of true heart failure. UA negative for infection. On repeat exam patient's nausea and discomfort are resolved and she would like to go home. I discussed the results of the CT, and that she does have signs of inflammation with a somewhat uncertain cause. Her abdomen is non-tender, she is afebrile, and she is tolerating PO without vomiting. I discussed that we will treat with cipro/flagyl for the diverticulitis/possible peritonitis, but that if she has any worsening or non-improving symptoms whatsoever she needs to return to the ED. She agrees and is discharged home in good condition. Departure - Departure Disposition: 01 Home, Self Care Clinical Impression: Enteritis Condition: Good Instructions: ED Diverticulitis Follow-Up: MARK ARGUELLO MD [Primary Care Provider] - Within 3 Days Prescriptions: Metronidazole [Flagyl] 500 mg PO Q8HR #21 tablet Ciprofloxacin HCl [Cipro] 500 mg PO BID #14 tablet Ondansetron Odt [Zofran] 4 mg TL Q6H PRN #5 tablet PRN Reason: Nausea / Vomiting Comments: You have some inflammation around your intestines, this may be an enteritis or a diverticulitis. Please take the antibiotics as prescribed, you may take the nausea medication for vomiting. If you are having worsening symptoms such as increasing abdominal pain, inability to eat or drink despite the Zofran, or any other concerning symptoms, return to the emergency department immediately. Even if you are feeling improved you should follow-up with your primary care provider ideally in the next 3-4 days. Your BNP level was a little elevated today, please follow-up with your primary care provider for an echocardiogram and further work-up of this. You should return to the emergency department immediately if you are having chest pain, shortness of breath, or coughing up blood. Discharge Date/Time: 12/31/18 18:53
[2018-12-31] MEDS ORDERED: ONDANSETRON 4 MG/2 ML VIAL IVP STA (13:33)
[2018-12-31] MEDS ORDERED: FAMOTIDINE 20 MG/2 ML VIAL IVP STA (13:54)
[2018-12-31] MEDS ORDERED: IOVERSOL 320 100 ML VIAL IVP ONE (14:14)
--- NOTE | 2018-12-31 15:05 | CT Report ---
Reason: Abdominal pain, vomiting Procedure Date: 12/31/2018 Accession Number: [id number] / [id number] Procedure: CT - Abdomen/Pelvis W CPT Code: Final Report FULL RESULT: EXAM: CT ABDOMEN AND PELVIS EXAM DATE: 12/31/2018 02:33 PM. CLINICAL HISTORY: Abdominal pain, vomiting. COMPARISONS: 06/21/2008. TECHNIQUE: Routine helical CT imaging was performed through the abdomen and pelvis. IV contrast: OPTI 320 80ML. Enteric contrast: No. Reconstructions: Coronal and sagittal. In accordance with CT protocol optimization, one or more of the following dose reduction techniques were utilized for this exam: automated exposure control, adjustment of mA and/or KV based on patient size, or use of iterative reconstructive technique. FINDINGS: Lung Bases: Unremarkable. Liver: There is a hypodense lesion in segment 4 of the liver measuring 7 mm in maximum diameter without significant change. There is no new liver lesion. Gallbladder/Bile Ducts: No evidence of acute cholecystitis. Spleen: Normal. Pancreas: Unremarkable. Adrenal Glands: Right adrenal gland appears normal. Left adrenal gland is poorly visualized. Kidneys: Left kidney appears malrotated. Kidneys are normal in size without hydronephrosis or mass. Peritoneal Cavity/Bowel: There is diffuse increased attenuation of mesenteric fat. There is a small volume of free fluid along the right and left paracolic gutter. There are multiple colonic diverticula. The small bowel appears normal in caliber. The colon wall is difficult to visualize given free fluid and fat stranding. No free air. The hepatic flexure of the colon appears somewhat thickened. There is a moderate to large hiatal hernia. Pelvic Organs: Urinary bladder appears unremarkable. Vasculature: The aorta is markedly tortuous. There is no abdominal aortic aneurysm or dissection. Iliac arteries appear normal in caliber. Bones: No significant abnormality. Other: None. IMPRESSION: 1. Diffuse mesenteric fat edema/inflammation with small intraperitoneal free fluid. Findings could represent generalized peritonitis versus edema related to cardiac disease or a systemic inflammatory process. Possible thickening of the hepatic flexure of colon raising possibility of colitis or diverticulitis. 2. No free air or convincing mechanical bowel obstruction. 3. Moderate sized hiatal hernia. RAD[facility]
[2018-12-31 16:33] LABS: BILIRUBIN,URINE NEGATIVE (NEGATIVE); GLUCOSE, URINE (UA) NEGATIVE (NEGATIVE); KETONES,URINE (UA) 15 mg/dL (NEGATIVE); LEUKOCYTE ESTERASE, URINE NEGATIVE (NEGATIVE); NITRITE,URINE NEGATIVE (NEGATIVE); OCCULT BLOOD,URINE NEGATIVE (NEGATIVE); PH,URINE 5.5 PH (5.0-7.5); PROTEIN,URINE NEGATIVE (NEGATIVE); UROBILINOGEN,URINE 0.2 (NORMAL) E.U./dL (NORMAL)
[2018-12-31 16:37] LABS: CLARITY,URINE CLEAR (CLEAR)
[2018-12-31] MEDS ORDERED: metroNIDAZOLE 250 MG TABLET PO STA (17:58)
[2018-12-31] MEDS ORDERED: CIPROFLOXACIN 250 MG TABLET PO STA (17:58)
[2018-12-31 18:04] VITALS: BP 119/68
== END 2018-12-31 18:53 | disposition home or self-care (01) ==
LOC: ED 11:59
DX: K52.9 Noninfective gastroenteritis and colitis, unspecified (principal); K44.9 Diaphragmatic hernia without obstruction or gangrene; I10 Essential (primary) hypertension; D64.9 Anemia, unspecified; Z79.82 Long term (current) use of aspirin
CPT/HCPCS: 36415; 74177; 80053; 81003; 83605; 83690; 83880; 84484; 85025; 96374; 96375; 99283; 99284; A9270; Q9967; 81001; 87086